=== PATIENT | female | born 1995 | race Caucasian/White ===

== ENCOUNTER 2017-02-22 14:03 | Emergency (ER) | payer OTHER ==
[~2017-02-22] VITALS: Ht 172.7 cm; Wt 62.6 kg
[2017-02-22 14:10] VITALS: TEMP 37; Ht 172.7 cm; Wt 62.6 kg
[2017-02-22] MEDS ORDERED: KETOROLAC TROMETHAMINE 30 MG/ML VIAL IV STA (14:19)
[2017-02-22] MEDS ORDERED: DEXAMETHASONE SOD INJ 10 MG/ML VIAL IV ONE (14:30)
[2017-02-22] MEDS ORDERED: AMPICILLIN/SULBACTAM SOD INJ 3,000 MG in SODIUM CHLORIDE 0.9% 100ML 100 ML IV ONE (14:30)
[2017-02-22] MEDS ORDERED: BCPILLS PO (14:34)
--- NOTE | 2017-02-22 15:01 | EMERGENCY ROOM VISIT NOTE ---
History Report prepared by Christie: Krystle Finnegan Under the Supervision of: Dr. Jason Smith M.D. First contact with patient: 14:13 Chief Complaint: SORETHROAT Stated Complaint: SWOLLEN TONSILS History of Present Illness The patient is a 21 year old female who presents to the Emergency Room with complaints of a worsening sore throat for the past 2 weeks. The patient states that initially her symptoms started with rhinorrhea and then she developed the sore throat. Her pain is worse on the right side of her throat. She saw Dr. Barajas five days ago for her symptoms and was prescribed clindamycin. She has been taking this medication but states that her symptoms have been worsening. The patient has pain that is worsened with swallowing, but she is able to swallow. She rates her pain as a 9/10 in severity. She can only open her mouth a small amount because of pain on the right side of her jaw. Her voice sounds deeper and muffled. The patient has been taking ibuprofen every 4 hours for pain. She went to [facility] today and they were concerned for peritonsillar abscess, so they sent the patient to the ED for further evaluation. She denies any fevers. Source of History: patient Onset: 2 weeks ago Position: throat Symptom Intensity: 9/10 Quality: other (sore) Timing: worsening Modifying Factors (Worsening): other (swallowing) Modifying Factors (Relieving): ibuprofen Associated Symptoms: No fevers Review of Systems See HPI for pertinent positives & negatives. A total of 10 systems reviewed and were otherwise negative. Past Medical & Surgical Medical Problems: (1) No significant active problems Family History No pertinent history stated. Social History Smoking Status: Never Smoker Occupation Status: [employer] student Current/Historical Medications Scheduled Control Pills ( Control Pills), 1 TAB PO DAILY Allergies Coded Allergies: No Known Allergies (Unverified , 02/22/17) Physical Exam Vital Signs Date Time Temp Pulse Resp B/P (MAP) Pulse Ox O2 Delivery O2 Flow Rate FiO2 02/22/17 14:10 37.0 88 18 122/78 98 Room Air 02/22/17 14:09 98 Room Air Physical Exam GENERAL: Patient is in no acute distress. HEENT: No acute trauma, normocephalic atraumatic, mucous membranes moist, no nasal congestion, no scleral icterus. The right tonsil is being pushed up against the uvula. There is evidence for peritonsillar abscess, she has trismus present and a somewhat muffled voice. NECK: No stridor, right sided anterior cervical adenopathy, no meningismus, trachea is midline. LUNGS: Clear to auscultation bilaterally, no wheeze, no rhonchi, breath sounds equal. HEART: Without murmurs gallops or rubs, regular rate and rhythm. ABDOMEN: Soft, nontender, bowel sounds positive, no hernias, no peritonitis. EXTREMITIES: No cyanosis or edema, full range of motion of all the joints without pain or difficulty, no signs for acute trauma. NEUROLOGIC: Oriented x 3, no acute motor or sensory deficits, no focal weakness. SKIN: No rash, no jaundice, no diaphoresis. Medical Decision & Procedures Laboratory Results 02/22/17 14:35 Red Blood Count 4.31, Mean Corpuscular Volume 78.4, Mean Corpuscular Hemoglobin 25.8, Mean Corpuscular Hemoglobin Concent 32.8, Mean Platelet Volume 9.7, Neutrophils (%) (Auto) 72.5, Lymphocytes (%) (Auto) 19.7, Monocytes (%) (Auto) 6.6, Eosinophils (%) (Auto) 0.8, Basophils (%) (Auto) 0.2, Neutrophils # (Auto) 6.00, Lymphocytes # (Auto) 1.63, Monocytes # (Auto) 0.55, Eosinophils # (Auto) 0.07, Basophils # (Auto) 0.02 02/22/17 14:35 Test 02/22/17 14:35 White Blood Count 8.29 K/uL (4.8-10.8) Red Blood Count 4.31 M/uL (4.2-5.4) Hemoglobin 11.1 g/dL (12.0-16.0) Hematocrit 33.8 % (37-47) Mean Corpuscular Volume 78.4 fL (80-100) Mean Corpuscular Hemoglobin 25.8 pg (25-34) Mean Corpuscular Hemoglobin Concent 32.8 g/dl (32-36) Platelet Count 311 K/uL (130-400) Mean Platelet Volume 9.7 fL (7.4-10.4) Neutrophils (%) (Auto) 72.5 % Lymphocytes (%) (Auto) 19.7 % Monocytes (%) (Auto) 6.6 % Eosinophils (%) (Auto) 0.8 % Basophils (%) (Auto) 0.2 % Neutrophils # (Auto) 6.00 K/uL (1.4-6.5) Lymphocytes # (Auto) 1.63 K/uL (1.2-3.4) Monocytes # (Auto) 0.55 K/uL (0.11-0.59) Eosinophils # (Auto) 0.07 K/uL (0-0.5) Basophils # (Auto) 0.02 K/uL (0-0.2) RDW Standard Deviation 45.5 fL (36.4-46.3) RDW Coefficient of Variation 15.9 % (11.5-14.5) Immature Granulocyte % (Auto) 0.2 % Immature Granulocyte # (Auto) 0.02 K/uL (0.00-0.02) Anion Gap 9.0 mmol/L (3-11) Est Creatinine Clear Calc Drug Dose 116.7 ml/min Estimated GFR () 130.9 Estimated GFR (Non- 112.9 BUN/Creatinine Ratio 12.2 (10-20) Calcium Level 9.3 mg/dl (8.5-10.1) Medications Administered Medications (Trade) Dose Ordered Sig/Madie Route Start Time Stop Time Status Last Admin Dose Admin Ketorolac Tromethamine (Toradol Inj) 30 mg NOW STAT IV 02/22/17 14:19 02/22/17 14:22 DC 02/22/17 14:38 30 MG Dexamethasone Sodium Phosphate (Decadron Inj) 10 mg NOW ONCE IV 02/22/17 14:30 02/22/17 14:31 DC 02/22/17 14:39 10 MG Ampicillin Sodium/ Sulbactam Sodium 3000 mg/Sodium Chloride 108 ml @ 200 mls/hr ONE ONCE IV 02/22/17 14:30 02/22/17 15:02 DC 02/22/17 14:43 200 MLS/HR ED Course 1413: The patient was evaluated in room C10. A complete history and physical exam was performed. 1419: Toradol 30 mg IV 1430: Ampicillin Sodium/Sulbactam Sodium 3000 mg/Sodium Chloride 108 ml @ 200 mls/hr IV , Decadron 10 mg IV 1448: I spoke with Dr. Dubois of ENT. We discussed the patient's case. He will see her in the office today for further management. 1452: I reassessed the patient at this time. She is resting more comfortably. I discussed the results and treatment plan with the patient. I answered all pertaining questions that she had. She expressed understanding and verbalized agreement. The patient will be discharged to go directly to Dr. Dubois's office. Medical Decision Differential diagnoses includes peritonsillar abscess, tonsillar cellulitis, failed outpatient treatment, strep infection, viral illness. There is no leukocytosis or concerning anemia. No significant electrolyte abnormality or kidney failure. On exam, the patient does have evidence for a right peritonsillar abscess. She had trismus, she had a muffled voice. Adenopathy was present along the right anterior neck. The patient has been on 5 days of clindamycin, there has been no improvement. I did speak to ENT. The patient is being sent directly to ENT. During the ER stay, the patient was given IV Decadron, IV Toradol and IV Unasyn. Medication Reconcilliation Current Medication List: was personally reviewed by me Blood Pressure Screening Patient's blood pressure: Normal blood pressure Consults Time Called: 1441 Consulting Physician: Dr. Dubois Returned Call: [address] Dubois of ENT. We discussed the patient's case. He will see her in the office today for further management. Impression Primary Impression: Peritonsillar abscess Scribe Attestation The scribe's documentation has been prepared under my direction and personally reviewed by me in its entirety. I confirm that the note above accurately reflects all work, treatment, procedures, and medical decision making performed by me. Departure Information Dispostion Home / Self-Care Referrals No Doctor, Assigned (PCP) Bear Dubois D.O. Forms HOME CARE DOCUMENTATION FORM, IMPORTANT VISIT INFORMATION Patient Instructions My [facility] Additional Instructions report directly to Dr. Hood's office form here return if worsening
[2017-02-22 15:02] LABS: BASO % 0.2 %; BASO ABS # 0.02 K/uL (0-0.2); COMPLETE YES; EOS % 0.8 %; HEMATOCRIT 33.8 % (37-47); IG% 0.2 %; LYMPH % 19.7 %; LYMPH ABS # 1.63 K/uL (1.2-3.4); MEAN CELL VOLUME 78.4 fL (80-100); MEAN CORPUSCULAR HEMOGLOBIN 25.8 pg (25-34); MEAN CORPUSCULAR HGB CONC 32.8 g/dl (32-36); MEAN PLATELET VOLUME 9.7 fL (7.4-10.4); MONO % 6.6 %; NEUT % 72.5 %; PLATELET COUNT 311 K/uL (130-400); RED BLOOD COUNT 4.31 M/uL (4.2-5.4); WHITE BLOOD COUNT 8.29 K/uL (4.8-10.8)
[2017-02-22 15:27] LABS: BUN/CREATININE RATIO 12.2 (10-20); CALCIUM 9.3 mg/dl (8.5-10.1); CREATININE 0.76 mg/dl (0.60-1.20); POTASSIUM 4.6 mmol/L (3.5-5.1)
[2017-02-22 15:43] VITALS: BP 110/66; PULSE 71; O2SAT 100
== END 2017-02-22 15:44 | disposition home or self-care (01) ==
LOC: C.EDB 14:05 → C.EDC 15:44
DX: J36 Peritonsillar abscess (principal); Z79.3 Long term (current) use of hormonal contraceptives